=== PATIENT | female | born 1995 | race Asian ===

== ENCOUNTER 2017-11-06 04:54 | Emergency (ER) | payer BC ==
[2017-11-06 05:01] VITALS: BP 134/88
[2017-11-06] MEDS ORDERED: Pantoprazole IV* 40 MG IV ONE (05:14)
[2017-11-06] MEDS ORDERED: Ketorolac INJ* 30 MG/ML 1 ML VIAL IV ONE (05:14)
[2017-11-06] MEDS ORDERED: NS 0.9% 1000 ML* 2,000 ML IV ONE (05:14)
[2017-11-06] MEDS ORDERED: Metoclopramide IV* 5 MG/ML 2 ML VIAL IV ONE (05:14)
[2017-11-06] MEDS ORDERED: diPHENhydraMINE IV* 50 MG/ML 1 ml VIAL (BENADRYL) IV ONE (05:16)
[2017-11-06 06:50] LABS: ABS Basophils 0 10^3/ul (0-0.2); ABS Eosinophils 0.2 10^3/ul (0-0.6); ABS Lymphocytes 2.7 10^3/ul (1.0-4.8); ABS Monocytes 0.5 10^3/ul (0-0.8); ABS Neutrophils 3.2 10^3/ul (1.5-7.7); ABS Nucleated RBC 0 10^3/ul; Eosinophil % 3.2 % (0-6); Hematocrit 41 % (35-47); Hemoglobin 13.5 g/dl (12.0-16.0); Lymphocyte % 40.3 % (25-47); Mean Corpuscular HGB Conc 33 g/dl (31-36); Mean Corpuscular Hemoglobin 27 pg (27-31); Mean Corpuscular Volume 80 fL (80-97); Mean Platelet Volume 7 um3 (7.4-10.4); Nucleated Red Blood Cells % 0.1; Platelet Count 275 10^3/ul (150-450); Red Blood Count 5.09 10^6/ul (4.0-5.4); Red Cell Distribution Width 13 % (10.5-15); White Blood Count 6.7 10^3/ul (3.5-10.8)
[2017-11-06 07:01] LABS: INR 0.96 (0.77-1.02)
[2017-11-06 07:02] LABS: Urine Appearance Clear; Urine Blood Negative (Negative); Urine Color Yellow; Urine Ketones Trace (Negative); Urine Protein Negative (Negative); Urine Specific Gravity 1.026 (1.010-1.030); Urine Urobilinogen Negative (Negative)
--- NOTE | 2017-11-06 07:04 | ED ---
Jo Nichols Abhishek, scribed for Opal Jewell MD on 11/06/17 at 0529 . Psychiatric Complaint - HPI Summary HPI Summary: The pt is a 21 F presenting to the [facility] with a chief complaint of vomiting since 11/02/17. Pt states the vomiting is stress induced and reports hematemesis in most recent episode a few hours ago. She states that these vomiting episodes are recurrent and normally go away within 1 day, however, most recent episodes have lasted for the past three days. Pt also reports of SI, without plan. The pain is reported to be a 0/10 in severity initially. Symptoms aggravated by stress. Symptoms are alleviated by nothing. - History Of Current Complaint Chief Complaint: EDMentalHealth Hx Obtained From: Patient Onset/Duration: Gradual Onset, Lasting Days - 11/02/17 Timing: Days - 3 days Character: Anxious Aggravating Factor(s): Other - Stress Alleviating Factor(s): Nothing Has Suicidal: Reports: Thoughts - Allergies/Home Medications Allergies/Adverse Reactions: Allergies Allergy/AdvReac Type Severity Reaction Status Date / Time No Known Allergies Allergy Verified 11/06/17 05:01 PMH/Surg Hx/FS Hx/Imm Hx Endocrine/Hematology History: Denies: Hx Diabetes Cardiovascular History: Denies: Hx Cardiac Arrest, Hx Coronary Artery Disease Sensory History: Denies: Hx Legally Blind Opthamlomology History: Denies: Hx Legally Blind EENT History: Denies: Hx Deafness Infectious Disease History: No Infectious Disease History: Denies: Traveled Outside the [place] in Last 30 Days - Family History Known Family History: Positive: Other - Negative cancer Negative: Cardiac Disease, Diabetes - Social History Occupation: Student Lives: Dormitory/Roommates Review of Systems Constitutional: Negative Eyes: Negative ENT: Negative Cardiovascular: Negative Respiratory: Negative Positive: Vomiting Genitourinary: Negative Musculoskeletal: Negative Skin: Negative Neurological: Negative Psychological: Other - SI Positive: Anxious All Other Systems Reviewed And Are Negative: Yes Physical Exam - Summary Physical Exam Summary: VITAL SIGNS: Reviewed. GENERAL: ~Patient is a well-developed and nourished (FEMALE) who is lying comfortable in the stretcher. Patient is not in any acute respiratory distress. HEAD AND FACE: No signs of trauma. No ecchymosis, hematomas or skull depressions. No sinus tenderness. EYES: PERRLA, EOMI x 2, No injected conjunctiva, no nystagmus. EARS: Hearing grossly intact. Ear canals and tympanic membranes are within normal limits. MOUTH: Oropharynx within normal limits. NECK: Supple, trachea is midline, no adenopathy, no JVD, no carotid bruit, no c- spine tenderness, neck with full ROM. CHEST: Symmetric, no tenderness at palpation LUNGS: Clear to auscultation bilaterally. No wheezing or crackles. CVS: Regular rate and rhythm, S1 and S2 present, no murmurs or gallops appreciated. ABDOMEN: Soft, non-tender. No signs of distention. No rebound no guarding, and no masses palpated. Bowel sounds are normal. EXTREMITIES: FROM in all major joints, no edema, no cyanosis or clubbing. NEURO: Alert and oriented x 3. No acute neurological deficits. Speech is normal and follows commands. SKIN: Dry and warm Triage Information Reviewed: Yes Vital Signs On Initial Exam: Initial Vitals Temp Pulse Resp BP Pulse Ox 98.0 F 65 16 134/88 98 11/06/17 04:55 11/06/17 04:55 11/06/17 04:55 11/06/17 04:55 11/06/17 04:55 Vital Signs Reviewed: Yes Diagnostics - Vital Signs Vital Signs Temp Pulse Resp BP Pulse Ox 11/06/17 04:55 98.0 F 65 16 134/88 98 - Laboratory Result Diagrams: 11/06/17 05:53 Lab Statement: Any lab studies that have been ordered have been reviewed, and results considered in the medical decision making process. Course/Dx - Course Course Of Treatment: The pt is a 21 y/o F presenting to the [facility] with a chief complaint of vomiting. The pt states the vomiting is stress induced and she also reports SI without a plan. Upon further evaluation, pt states she has had a suicidal episode about 1 year ago without a plan. The Pt is awaiting MHE and will be signed out to Dr. Lindsey, pending disposition. The pt dx will be depression and vomiting. - Differential Dx/Clinical Impression Provider Diagnosis: Depression, Vomiting Discharge - Discharge Plan Condition: Stable Disposition: OTHER Discharge Disposition Comment: The pt will be signed out to Dr. Lindsey, pending disposition and MHE Referrals: No Primary Care Phys,NOPCP [Primary Care Provider] - The documentation as recorded by the Jo epps Abhishek accurately reflects the service I personally performed and the decisions made by , Opal Jewell MD.
[2017-11-06 08:02] LABS: EGFR Non-African American 90.1 (>60)
--- NOTE | 2017-11-06 09:14 | PN ---
ED Flex Patient Progress Note Date of Service: 11/06/17 Subjective: This is a 21 year-old F who is pending mental health evaluation secondary to depression, suicidal ideation. Pt offers no complaints at this time. Objective: Vitals: Most recent vital signs documented below. General NAD, Alert and oriented x3. Heart: rrr at 65 bpm Lungs: CTA or with rales, rhonchi, wheezing Laboratory: Current laboratory results documented below. Assessment: pending MHE and disposition Plan: Pending psychiatric consultation. Will follow up daily. Vital Signs Temp Pulse Resp BP Pulse Ox 98.0 F 65 16 134/88 98 11/06/17 04:55 11/06/17 04:55 11/06/17 04:55 11/06/17 04:55 11/06/17 04:55 Lab Results - Entire Visit 11/06/17 11/06/17 11/06/17 05:53 05:53 05:53 WBC RBC Hgb Hct MCV MCH MCHC RDW Plt Count MPV Neut % (Auto) Lymph % (Auto) [place] % (Auto) Eos % (Auto) Baso % (Auto) Absolute Neuts (auto) Absolute Lymphs (auto) Absolute Monos (auto) Absolute Eos (auto) Absolute Basos (auto) Absolute Nucleated RBC Nucleated RBC % INR (Anticoag Therapy) 0.96 Sodium Potassium Chloride Carbon Dioxide Anion Gap BUN Creatinine Est GFR ( Amer) Est GFR (Non-Af Amer) BUN/Creatinine Ratio Glucose Calcium Magnesium Total Bilirubin AST ALT Alkaline Phosphatase Total Protein Albumin Globulin Albumin/Globulin Ratio Amylase Lipase TSH Beta HCG, Quant Urine Color Yellow Urine Appearance Clear Urine pH 5.0 Ur Specific [place] 1.026 Urine Protein Negative Urine Ketones Trace A Urine Blood Negative Urine Nitrate Negative Urine Bilirubin Negative Urine Urobilinogen Negative Ur Leukocyte Esterase Negative Urine Glucose Negative Salicylates Urine Opiates Screen None detected Acetaminophen Ur Barbiturates Screen None detected Ur Phencyclidine Scrn None detected Ur Amphetamines Screen None detected U Benzodiazepines Scrn None detected Urine Cocaine Screen None detected U Cannabinoids Screen None detected Serum Alcohol 11/06/17 11/06/17 05:53 05:53 WBC 6.7 RBC 5.09 Hgb 13.5 Hct 41 MCV 80 MCH 27 MCHC 33 RDW 13 Plt Count 275 MPV 7 L Neut % (Auto) 48.4 Lymph % (Auto) 40.3 [place] % (Auto) 7.7 H Eos % (Auto) 3.2 Baso % (Auto) 0.4 Absolute Neuts (auto) 3.2 Absolute Lymphs (auto) 2.7 Absolute Monos (auto) 0.5 Absolute Eos (auto) 0.2 Absolute Basos (auto) 0 Absolute Nucleated RBC 0 Nucleated RBC % 0.1 INR (Anticoag Therapy) Sodium 137 Potassium 3.4 L Chloride 105 Carbon Dioxide 26 Anion Gap 6 BUN 11 Creatinine 0.81 Est GFR ( Amer) 115.9 Est GFR (Non-Af Amer) 90.1 BUN/Creatinine Ratio 13.6 Glucose 81 Calcium 9.4 Magnesium 2.0 Total Bilirubin 0.60 AST 19 ALT 14 Alkaline Phosphatase 37 Total Protein 7.7 Albumin 4.1 Globulin 3.6 Albumin/Globulin Ratio 1.1 Amylase 55 Lipase 15 TSH 4.04 Beta HCG, Quant < 0.60 Urine Color Urine Appearance Urine pH Ur Specific [place] Urine Protein Urine Ketones Urine Blood Urine Nitrate Urine Bilirubin Urine Urobilinogen Ur Leukocyte Esterase Urine Glucose Salicylates < 2.50 Urine Opiates Screen Acetaminophen < 15 Ur Barbiturates Screen Ur Phencyclidine Scrn Ur Amphetamines Screen U Benzodiazepines Scrn Urine Cocaine Screen U Cannabinoids Screen Serum Alcohol < 10
--- NOTE | 2017-11-06 10:57 | PN ---
Progress Note - Progress Note Date of Service: 11/06/17 Note: S: Yelena is a 21 y.o. 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 She has an anatomy exam tomorrow that she is unprepared for and risks losing her scholarship. She had started a trial of sertraline, prescribed by [facility], but discontinued this when her parents disapproved. She endorses multiple symptoms consistent with MDD, including guilt, lethargy, poor concentration, worry, anxiety and passive SI. The patient does not want admission but very much wants help. I spoke with her mother, Mrs. Avendano, on the phone and she agreed, under the circumstances, that antidepressant therapy was warranted. O: young female, depressed, anxious, tearful but cooperative and future- oriented; highly motivated to get help and improve. A/P: MDD: Patient declined voluntary admission. Does not meet 9.39 criteria. D /C to campus. Will Rx sertraline 50mg PO qday. F/U with psychiatrist Isaiah Keita at [facility] F/U with therapist Denise Luna at .. Refer to [employer] Consultant Jennifer Del Rio for academic accommodations. Patient and mother agreeable with this plan.
--- NOTE | 2017-11-06 11:45 | ED ---
Noah Nichols Angela, scribed for Timmy Lindsey MD on 11/06/17 at 0748 . Progress - Progress Note Progress Note: This pt was signed out by Dr. Jewell, pending disposition, awaiting MHE. Pt is a 21 y/o female presenting to [facility] c/o vomiting since since 11/02/17. She states her vomiting is stress induced. Pt additionally reports SI without a plan. On re-evaluation, pt reports her nausea is better. She denies any pain currently. Physical Exam: VITAL SIGNS: Reviewed. GENERAL: Patient is a well-developed and nourished female who is lying comfortable in the stretcher. Patient is not in any acute respiratory distress. HEAD AND FACE: No signs of trauma. No ecchymosis, hematomas or skull depressions. No sinus tenderness. EYES: PERRLA, EOMI x 2, No injected conjunctiva, no nystagmus. EARS: Hearing grossly intact. Ear canals and tympanic membranes are within normal limits. MOUTH: Oropharynx within normal limits. NECK: Supple, trachea is midline, no adenopathy, no JVD, no carotid bruit, no c- spine tenderness, neck with full ROM. CHEST: Symmetric, no tenderness at palpation LUNGS: Clear to auscultation bilaterally. No wheezing or crackles. CVS: Regular rate and rhythm, S1 and S2 present, no murmurs or gallops appreciated. ABDOMEN: Soft, non-tender. No signs of distention. No rebound no guarding, and no masses palpated. Bowel sounds are normal. EXTREMITIES: FROM in all major joints, no edema, no cyanosis or clubbing. NEURO: Alert and oriented x 3. No acute neurological deficits. Speech is normal and follows commands. SKIN: Dry and warm Pt is medically cleared at 07:38. She is awaiting MHE. Pt was evaluated by the mental health manager [employer] and Dr. Mercado. Dr. Mercado recommends to discharge the pt home and follow up as an outpatient with [facility]. Pt will be discharged to home, in stable condition, with a diagnosis of depression. Condition: Stable Disposition: Home Re-Evaluation - Re-Evaluation First Eval Re-Evaluation Time: 07:37 Change: Improved Comment: Pt reports her nausea is better. She denies any pain currently. Course/Dx - Diagnoses Provider Diagnoses: Depression The documentation as recorded by the Noah epps Angela accurately reflects the service I personally performed and the decisions made by me, Timmy Lindsey MD.
== END 2017-11-06 11:39 ==
LOC: ED 04:54
DX: F32.9 Major depressive disorder, single episode, unspecified (principal); R11.10 Vomiting, unspecified
CPT/HCPCS: 36415; 80053; 80307; 80320; 80329; 81003; 82150; 83690; 83735; 84443; 84702; 85025; 85610; 96374; 96375; 99284; G0480; J1200; J1885; J2765

== ENCOUNTER 2018-11-15 08:51 | Emergency (ER) | payer BC ==
[2018-11-15 09:04] VITALS: BP 107/73
--- NOTE | 2018-11-15 09:30 | UC ---
FLU HPI - HPI Summary HPI Summary: 23 y/o female presents to the urgent care c/o body aches, fever, LUCIANO, sore throat, left ear pain for the past 3 days. Pt reports pain w/ swallowing is 8/ 10. She has taken Benadryl PO and Advil cold and flu to alleviate symptoms. this morning she developed mild dry cough. Pt states low grade fever the first day of symptoms. Pt denies SOB, chest pain, abdominal pain, N/V/D. Pt is UTD w/ all vaccines for her age. - History of Current Complaint Chief Complaint: UCGeneralIllness Stated Complaint: EAR/NOSE/ THROAT PAIN Time Seen by Provider: 11/15/18 09:09 Hx Obtained From: Patient Hx Last Menstrual Period: 11/16/18 ?: No Onset/Duration: Gradual Onset, Lasting Days - 3 days, Still Present Severity Currently: Mild Severity Initially: Moderate Pain Intensity: 8 - sore throat Pain Scale Used: 0-10 Numeric Associated Signs & Symptoms: Positive: Myalgia, Sore Throat - Risk Factors Influenza Risk Factors: Negative - Allergy/Home Medications Allergies/Adverse Reactions: Allergies Allergy/AdvReac Type Severity Reaction Status Date / Time No Known Allergies Allergy Verified 11/15/18 09:05 PMH/Surg Hx/FS Hx/Imm Hx Previously Healthy: Yes - Pt denies pMHX - Surgical History Surgical History: None - Family History Known Family History: Positive: None - Pt denies FMHX, Other - Negative cancer Negative: Cardiac Disease, Diabetes - Social History Occupation: Student Lives: With Family Alcohol Use: None Substance Use Type: None Smoking Status (MU): Never Smoked Tobacco - Immunization History Vaccination Up to Date: Yes Review of Systems All Other Systems Reviewed And Are Negative: Yes Constitutional: Positive: Fatigue, Other - body aches Skin: Positive: Negative Eyes: Positive: Negative ENT: Positive: Sore Throat, Ear Ache - lrft ear pain Respiratory: Positive: Cough - dry cough Cardiovascular: Positive: Negative Gastrointestinal: Positive: Negative Genitourinary: Positive: Negative Motor: Positive: Negative Neurovascular: Positive: Negative Musculoskeletal: Positive: Myalgia Neurological: Positive: Negative Psychological: Positive: Negative Is Patient Immunocompromised?: No Physical Exam - Summary Physical Exam Summary: VITAL SIGNS: Reviewed. GENERAL: Patient is a well developed and nourished female who is sitting comfortable in the examining table. Patient is not in any acute respiratory distress. HEAD AND FACE: No signs of trauma. No ecchymosis, hematomas or skull depressions. No sinus tenderness. EYES: PERRLA, EOMI x 2, No injected conjunctiva, no nystagmus. No photophobia. EARS: Hearing grossly intact. Ear canals and tympanic membranes are within normal limits. MOUTH: Positive pharynx with erythema, exudates, palatal petechiae. B/L tonsillar enlargement with no exudate. Uvula in midline. NECK: Supple, trachea is midline, Positive anterior cervical lymphadenopathy, no JVD, no carotid bruit, no c-spine tenderness, neck with full ROM. No meningeal signs, no Kernig's or brudzinskis signs. CHEST: Symmetric, no tenderness at palpation LUNGS: Clear to auscultation bilaterally. No wheezing or crackles. CVS: Regular rate and rhythm, S1 and S2 present, no murmurs or gallops appreciated. ABDOMEN: Soft, non-tender. No signs of distention. No rebound no guarding, and no masses palpated. Bowel sounds are normal. EXTREMITIES: FROM in all major joints, no edema, no cyanosis or clubbing. NEURO: Alert and oriented x 3. No acute neurological deficits. Speech is normal and follows commands. SKIN: Dry and warm Triage Information Reviewed: Yes Vital Signs: Initial Vital Signs Temp 97.6 F 11/15/18 09:02 Pulse 84 11/15/18 09:02 Resp 16 11/15/18 09:02 BP 107/73 11/15/18 09:02 Pulse Ox 100 11/15/18 09:02 Flu Course/Dx - Course Course Of Treatment: 23 y/o female presents to the urgent care c/o body aches, fever, LUCIANO, sore throat, left ear pain for the past 3 days. Pt reports pain w/ swallowing is 8/ 10. She has taken Benadryl PO and Advil cold and flu to alleviate symptoms. this morning she developed mild dry cough. Pt states low grade fever the first day of symptoms. Pt denies SOB, chest pain, abdominal pain, N/V/D. Pt is UTD w/ all vaccines for her age. Hx obtained. Pt w/ pharyngitis on examination. Rapid strep: negative, Influenza A&B: negative. Monospot and CBC ordered and sent to lab. pt will be notified of the results. Pt Rx ibuprofen PO to alleviates symptoms of pain and swelling. Advised on hand washing to avoid spreading. Pt advised to rest, eat well and avoid strenuous exercise. If symptoms do not improve or worsen advised to return to the urgent care or f/u with her PCP for further evaluation and treatment. Pt understood and agreed - Differential Dx/Diagnosis Differential Diagnosis/HQI/PQRI: Bronchitis, Influenza, Upper Respiratory Infection, Other - pharyngitis, Mononucleosis, tonsillitis Provider Diagnosis: Acute viral pharyngitis Discharge - Sign-Out/Discharge Documenting (check all that apply): Patient Departure - d/c home All imaging exams completed and their final reports reviewed: No Studies - Discharge Plan Condition: Stable Disposition: HOME Patient Education Materials: Pharyngitis (ED) Referrals: [facility] [place], [place] [facility] REFERR[facility] [Outside] - 2 Days Additional Instructions: 1-Please take ibuprofen PO q6-8hrs prn as instructed after meals to alleviate pain and swelling. Increase fluid intake, eat well, rest and avoid strenuous exercise 2- Monospot and CBC sent to lab to r/o Mononucleosis or any other abnormality. You will be notified of results. 3-If symptoms do not improve or worsen please return to the urgent care or f/u with your PCP in 3 days for further evaluation and treatment. - Billing Disposition and Condition Condition: STABLE Disposition: Home
[2018-11-15 09:32] LABS: Influenza A Molecular NEGATIVE (Negative); Influenza B Molecular NEGATIVE (Negative)
[2018-11-15 14:34] LABS: ABS Basophils 0 10^3/ul (0-0.2); ABS Eosinophils 0.2 10^3/ul (0-0.6); ABS Lymphocytes 1.3 10^3/ul (1.0-4.8); ABS Monocytes 0.5 10^3/ul (0-0.8); ABS Neutrophils 7.2 10^3/ul (1.5-7.7); ABS Nucleated RBC 0 10^3/ul; Eosinophil % 2.4 %; Hematocrit 42 % (33-41); Hemoglobin 13.5 g/dL (12.0-16.0); Lymphocyte % 13.6 %; Mean Corpuscular HGB Conc 32 g/dL (31-36); Mean Corpuscular Hemoglobin 26 pg (27-31); Mean Corpuscular Volume 81 fL (80-97); Mean Platelet Volume 7.6 fL (7.4-10.4); Nucleated Red Blood Cells % 0; Platelet Count 251 10^3/uL (150-450); Red Blood Count 5.16 10^6 /uL (3.70-4.87); Red Cell Distribution Width 14 % (10.5-15); White Blood Count 9.3 10^3/uL (3.5-10.8)
--- NOTE | 2018-11-16 08:24 | UC ---
- Progress Note Progress Note: 11/16/2018 Monospot: negative CBC: WNL Please notify patient of her Monospot results. Thank you Val Dubose PA-C Course/Dx - Diagnoses Provider Diagnoses: Acute viral pharyngitis Discharge - Sign-Out/Discharge Documenting (check all that apply): Patient Departure - D/c home All imaging exams completed and their final reports reviewed: No Studies - Discharge Plan Condition: Stable Disposition: HOME Patient Education Materials: Pharyngitis (ED) Referrals: [facility] [place] [facility] [Outside] - 2 Days Additional Instructions: 1-Please take ibuprofen PO q6-8hrs prn as instructed after meals to alleviate pain and swelling. Increase fluid intake, eat well, rest and avoid strenuous exercise 2- Monospot and CBC sent to lab to r/o Mononucleosis or any other abnormality. You will be notified of results. 3-If symptoms do not improve or worsen please return to the urgent care or f/u with your PCP in 3 days for further evaluation and treatment. - Billing Disposition and Condition Condition: STABLE Disposition: Home
[2018-11-18 12:50] LABS: EBV Capsid Ag IgG Ab Positive (Negative); EBV Capsid Ag IgM Ab Negative (Negative); Epstein-Barr Nuclear Antigen Positive (Negative)
== END 2018-11-15 10:02 | disposition home or self-care (01) ==
LOC: UCEAST 08:51
DX: J02.9 Acute pharyngitis, unspecified (principal)
CPT/HCPCS: 36415; 85025; 86308; 86664; 86665; 87651; 99211; G0463

== ENCOUNTER 2018-12-07 12:42 | Emergency (ER) | payer BC ==
[2018-12-07 13:23] VITALS: BP 110/72
[2018-12-07 14:29] LABS: Influenza A Molecular POSITIVE (Negative)
--- NOTE | 2018-12-07 14:48 | UC ---
Respiratory Complaint HPI - HPI Summary HPI Summary: Patient is a 23 year old female, who present today to the urgent care with respiratory symptoms for past but 2 days. Symptoms started Saturday with sore throat, fatigue and chills. Dry to productive cough with associated body aches.. MAXIMUM TEMPERATURE of 101.2F yesterday and day before. No sick contacts . No skin rash. she reports some nausea and 1 episode of vomiting - History of Current Complaint Chief Complaint: UCRespiratory Stated Complaint: FLU LIKE Time Seen by Provider: 12/07/18 14:17 Hx Obtained From: Patient Hx Last Menstrual Period: 11/11/18 ?: No Pain Intensity: 10 - Allergies/Home Medications Allergies/Adverse Reactions: Allergies Allergy/AdvReac Type Severity Reaction Status Date / Time No Known Allergies Allergy Verified 12/07/18 13:23 Home Medications: Home Medications Acetaminophen TAB* [Tylenol TAB*] 325 mg PO Q4H PRN 12/07/18 [History Confirmed 12/07/18] D-Methorphan/PE/Acetaminophen [Gnp Day Time Cold/Flu Rel] 1 liq PO DAILY PRN 03/20 [History Confirmed 12/07/18] Sertraline* [Zoloft*] 150 mg PO DAILY 12/07/18 [History Confirmed 12/07/18] PMH/Surg Hx/FS Hx/Imm Hx - Additional Past Medical History Additional PMH: suicidal attempt in the past, currently no suicidal ideations Previously Healthy: Yes - Surgical History Surgical History: None - Family History Known Family History: Positive: None - Pt denies FMHX, Other - Negative cancer Negative: Cardiac Disease, Diabetes - Social History Alcohol Use: Occasionally Substance Use Type: None Smoking Status (MU): Never Smoked Tobacco - Immunization History Vaccination Up to Date: Yes Review of Systems All Other Systems Reviewed And Are Negative: Yes Constitutional: Positive: Fever, Chills, Fatigue, Other - body aches Skin: Positive: Negative Eyes: Positive: Negative ENT: Positive: Sore Throat, Other - ear congestion Respiratory: Positive: Cough - dry to productive Cardiovascular: Positive: Negative Gastrointestinal: Positive: Vomiting, Nausea Genitourinary: Positive: Negative Motor: Positive: Negative Neurovascular: Positive: Negative Musculoskeletal: Positive: Negative Neurological: Positive: Negative Psychological: Positive: Negative Is Patient Immunocompromised?: No Physical Exam - Summary Physical Exam Summary: Physical Exam: Const: Appears well. No signs of apparent distress present. Alert and oriented x 3. Musculo: Walks with a normal gait. Head/Face: Atraumatic, normocephalic on inspection. Eyes: EOMI and PERRLA in both eyes. Conjunctivae clear. No discharge noted ENT: Hearing normal, TM normal appearing bilaterally there is pharyngeal erythema with significantly enlarged tonsils bilaterally without any exudates . Uvula is midline. No cervical or submandibular lymphadenopathy noted but she reports tenderness upon palpation in that area Respiratory: Respirations are unlabored. Lungs clear to auscultation bilaterally, no wheezing , rhonchi or rales noted . CVS: Regular rate and Rhythm, S1S2 normal , no murmurs identified. Extremities: Peripheral circulation is grossly normal. Pulses 2+ Abdomen : Soft non tender , nondistended , Bowel sounds present . No guarding , rebound tenderness or rigidity noted. Skin: No lesions or rash located on the upper extremities or on the lower extremities. Neuro: Cranial nerves II to XII intact, motor and sensory intact. DTR Intact bilaterally. Mood is normal. Affect is normal. Triage Information Reviewed: Yes Vital Signs: Initial Vital Signs Temp 97.9 F 12/07/18 13:19 Pulse 103 12/07/18 13:19 Resp 16 12/07/18 13:19 BP 110/72 12/07/18 13:19 Pulse Ox 99 12/07/18 13:19 Vital Signs Reviewed: Yes Respiratory Course/Dx - Course Course Of Treatment: During the visit today, she tested positive for influenza A. Rapid strep test was negative. We discussed the findings and further plan. I will prescribe the medication to the pharmacy . Patient expressed understanding . - Differential Dx/Diagnosis Provider Diagnosis: Influenza A Discharge - Sign-Out/Discharge Documenting (check all that apply): Patient Departure All imaging exams completed and their final reports reviewed: No Studies - Discharge Plan Condition: Stable Disposition: HOME Prescriptions: Oseltamivir SUSP 75 MG dose* [Tamiflu SUSP 75 MG dose*] 75 mg PO BID 10 Days # 10 tab Patient Education Materials: Influenza (ED) Forms: *School Release Referrals: No Primary Care Phys,NOPCP [Primary Care Provider] - 1 Week Additional Instructions: Please start taking the medication as prescribed to the pharmacy . keep yourself hydrated ibuprofen as needed for fever Throat lozenges and salt water gargles will be helpful Follow up with [facility] at [facility] in 1 week Return to Urgent care / ER if symptoms get worse. - Billing Disposition and Condition Condition: STABLE Disposition: Home
== END 2018-12-07 15:15 | disposition home or self-care (01) ==
LOC: UCEAST 12:42
DX: J10.1 Influenza due to other identified influenza virus with other respiratory manifestations (principal)
CPT/HCPCS: 87651; 99212; G0463